=== PATIENT | male | born 1940 | race Caucasian/White ===

== ENCOUNTER 2017-12-28 06:59 | Observation (INO) | payer OTHER ==
[2017-12-28] MEDS ORDERED: NA CHLORIDE 0.9% 1,000 ML ONE (07:31)
[2017-12-28 08:03] LABS: Protime INR 1.08
[2017-12-28 08:04] LABS: Absolute Lymphocytes (CBC) 0.7 K/uL (0.7-4.9); Absolute Monocytes 0.6 K/uL (0.1-1.3); Absolute Neutrophil 8.2 K/uL (1.8-8.0); Basophils % 0.5 % (0-1.3); Eosinophils % 0.8 % (0-4.4); Hematocrit 46.1 % (39.6-49.0); Lymphocytes % 7.7 % (15.3-44.8); MCH 29.7 pg (27.0-35.0); MCV 87.4 fL (80-100); MPV 8.6 fL (7.6-11.3); Monocytes % 6.3 % (3.3-12.3); RBC Red Blood Cell Count 5.27 M/uL (4.33-5.43)
--- NOTE | 2017-12-28 08:10 | RAD REPORT ---
EXAM DESCRIPTION: CT - Head Brain Wo Cont - 12/28/2017 7:46 am CLINICAL HISTORY: DECLINING STATE Drowsiness COMPARISON: MRI BRAIN WITHOUT CONTRAST dated 02/10/2014 TECHNIQUE: All CT scans are performed using dose optimization technique as appropriate and may inclu de automated exposure control or mA/KV adjustment according to patient size. FINDINGS: No intracranial hemorrhage, hydrocephalus or extra-axial fluid collection.Moderate general ized brain atrophy noted.No areas of brain edema or evidence of midline shift. The paranasal sinuses and mastoids are clear. The calvarium is intact. Mild vertebral artery atherosc lerosis. IMPRESSION: No acute intracranial abnormality.
[2017-12-28 08:17] LABS: ALT/SGPT 34 U/L (12-78); AST/SGOT 30 U/L (15-37); Alkaline Phosphatase 81 U/L (45-117); BUN Blood Urea Nitrogen 13 mg/dL (7-18); Bicarbonate 29 mmol/L (21-32); Bilirubin Direct 0.2 mg/dL (0-0.2); Bilirubin Total 0.7 mg/dL (0.2-1.0); Glucose Level 103 mg/dL (74-106); Magnesium 2.6 mg/dL (1.8-2.4); NT PRO-BNP 49 pg/mL (<450); Potassium 4.2 mmol/L (3.5-5.1); Protein, Total 6.9 g/dL (6.4-8.2); Sodium Level 141 mmol/L (136-145); Troponin (Emerg Dept Use Only) < 0.02 ng/mL (0.0-0.045)
--- NOTE | 2017-12-28 08:53 | RAD REPORT ---
EXAM DESCRIPTION: RAD - Chest Single View - 12/28/2017 8:02 am CLINICAL HISTORY: MALAISE Chest pain. COMPARISON: Chest Pa And Lat (2 Views) dated 07/03/2015; CHEST PA AND LAT 2 VIEW dated 02/11/2012 FINDINGS: Portable technique limits examination quality. The lungs are grossly clear. The heart is normal in size. No displaced fractures.Cervical hardware pl ate. IMPRESSION: No acute intrathoracic process suspected.
[2017-12-28 09:05] LABS: Urine Bacteria 20-50 /HPF (NONE SEEN); Urine RBC <5 /HPF (NONE SEEN)
[2017-12-28 09:06] LABS: Urine Culture Reflex Order REFLEXED; Urine Mucus 1+ /HPF (NONE SEEN)
--- NOTE | 2017-12-28 10:05 | ER ---
Nurse's Notes [facility] Name: Fish Montana Sr Age: 77 yrs Sex: Male : 1940 Arrival Date: 12/28/2017 Time: 07:04 Bed 6 Private MD: Branden De Leon V Diagnosis: Adult failure to thrive Presentation: 12/28 07:14 Presenting complaint: states: GENERALIZED WEAKNESS AND REPEATED FALLS. Transition bp of care: patient was not received from another setting of care. Onset of symptoms is unknown. Risk Assessment: Do you want to hurt yourself or someone else? Patient reports no desire to harm self or others. Initial Sepsis Screen: Does the patient meet any 2 criteria? No. Patient's initial sepsis screen is negative. Does the patient have a suspected source of infection? No. Patient's initial sepsis screen is negative. Care prior to arrival: None. 07:14 Method Of Arrival: Wheelchair bp 07:14 Acuity: KAREN 4 bp Triage Assessment: 07:15 General: Appears in no apparent distress. comfortable, well groomed, Behavior is calm, bp cooperative. Pain: Unable to use pain scale. Does not appear to understand pain scale. EENT: No deficits noted. Neuro: Level of Consciousness is awake, alert, confused, Oriented to none. Cardiovascular: No deficits noted. Rhythm is sinus rhythm. Respiratory: Airway is patent Respiratory effort is even, unlabored, Respiratory pattern is regular, symmetrical. GI: No signs and/or symptoms were reported involving the gastrointestinal system. : No signs and/or symptoms were reported regarding the genitourinary system. Derm: No deficits noted. Musculoskeletal: Circulation, motion, and sensation intact. Range of motion: intact in all extremities. Historical: - Allergies: 07:15 No Known Allergies; bp - Home Meds: 07:15 Exelon Oral [Active]; bp - PMHx: 07:15 Dementia; Alzheimers; bp - Immunization history:: Adult Immunizations up to date. - Social history:: Smoking status: Patient/guardian denies using tobacco. - Ebola Screening: : Patient negative for fever greater than or equal to 101.5 degrees Fahrenheit, and additional compatible Ebola Virus Disease symptoms Patient denies exposure to infectious person Patient denies travel to an Ebola-affected area in the 21 days before illness onset No symptoms or risks identified at this time. Screenin:18 Abuse screen: Denies threats or abuse. Denies injuries from another. Nutritional bp screening: No deficits noted. Tuberculosis screening: No symptoms or risk factors identified. Fall Risk Fall in past 12 months (25 points). Secondary diagnosis (15 points) Alzheimer's, dementia, No IV (0 pts). Ambulatory Aid- Crutches/Cane/Walker (15 pts). Gait- Weak (10 pts.). Mental Status- Overestimates/Forgets Limitations (15 pts.). Total Patterson Fall Scale indicates High Risk Score (45 or more points). Fall prevention measures have been instituted. Side Rails Up X 2 Placed Close to Nursing Station Frequent Obs/Assessments Occuring Family Present and informed to notify staff if the need to leave the bedside As available patient and family educated on Fall Prevention Program and Strategies. Assessment: 07:18 General: SEE TRIAGE NOTE. 77YO WM P/W GEN WEAKNESS AND FALLS, H/O ALZ AND DEMENTIA. PT bp MENTATION BASELINE. 07:40 Reassessment: PT TO CT WITH ASTRONOMY DEPARTMENT CHAIR. bp 08:00 Reassessment: PT RETURNED FROM CT. UOP PENDING, NO CHANGE IN NEURO STATUS. bp 09:00 Reassessment: ALL CURRENT ORDERS COMPLETED, RESULTS PENDING. bp 10:00 Reassessment: ALL CURRENT STUDIES RESULTED, UNREMARKABLE. PT TBA, PER FAMILY AND PCP, bp FOR FURTHER STUDIES. Vital Signs: 07:15 BP 151 / 74; Pulse 85; Resp 16; Temp 97.8; Pulse Ox 97% ; Weight 92.53 kg; Height 5 ft. bp 9 in. (175.26 cm); 08:00 BP 165 / 86; Pulse 84; Resp 14; Pulse Ox 97% ; bp 09:00 BP 149 / 70; Pulse 84; Resp 13; Pulse Ox 98% ; bp 10:00 BP 157 / 81; Pulse 86; Resp 19; Pulse Ox 98% ; bp 07:15 Body Mass Index 30.13 (92.53 kg, 175.26 cm) bp ED Course: 07:04 Patient arrived in ED. do 07:04 Branden De Leon MD is Private Physician. do 07:08 Nathan Arrington, RUSTY is Primary Nurse. bp 07:12 Dave Liu MD is Attending Physician. gs 07:15 Triage completed. bp 07:15 Arm band placed on. bp 07:18 Patient has correct armband on for positive identification. Placed in gown. Bed in low bp position. Call light in reach. Side rails up X2. Adult w/ patient. 07:40 Initial lab(s) drawn, by me, sent to lab. Inserted saline lock: 22 gauge in left hj antecubital area, using aseptic technique. Blood collected. 07:44 CT Head Brain wo Cont In Process Unspecified. EDMS 07:50 X-ray completed. Patient tolerated procedure well. Patient moved to radiology via stretcher. Patient moved back from radiology. 07:52 XRAY Chest (1 view) In Process Unspecified. EDMS 10:04 Branden De Leon MD is Hospitalizing Provider. gs 10:36 No provider procedures requiring assistance completed. Patient admitted, IV remains in bp place. Administered Medications: 07:57 Drug: NS 0.9% 1000 ml Route: IV; Rate: 1 bolus; Site: left antecubital; 10:16 Follow up: IV Status: Completed infusion; IV Intake: 1000ml bp Intake: 10:16 IV: 1000ml; Total: 1000ml. bp Outcome: 10:04 Decision to Hospitalize by Provider. gs 10:35 Admitted to Med/surg accompanied by tech, family with patient, via stretcher, room 230, bp with chart, Report called to BELEN OJEDA 10:35 Condition: stable 10:35 Instructed on the need for admit. 10:43 Patient left the ED. Signatures: Dispatcher [employer] EDKaela Marti Anselmo Champagne, RUSTY RN Gabbie Mcmanus Gregory, MD MD Nathan Arrington, RN RN bp
--- NOTE | 2017-12-28 10:05 | EDPHYS ---
Physician Documentation [facility] Name: Fish Montana Sr Age: 77 yrs Sex: Male : 1940 Arrival Date: 12/28/2017 Time: 07:04 Bed 6 Private MD: Branden De Leon V ED Physician Dave Liu HPI: 12/28 09:57 This 77 yrs old Male presents to ER via Wheelchair with complaints of Fall gs Injury. 09:57 Details of fall: The patient fell from an upright position. Onset: The symptoms/episode gs began/occurred 2 day(s) ago. Associated injuries: The patient sustained injury to the head, abrasion. Severity of symptoms: At their worst the symptoms were moderate, in the emergency department the symptoms are unchanged. The patient has experienced similar episodes in the past, several times. The patient has not recently seen a physician. worsening of dementia poor intake. Historical: - Allergies: 07:15 No Known Allergies; bp - Home Meds: 07:15 Exelon Oral [Active]; bp - PMHx: 07:15 Dementia; Alzheimers; bp - Immunization history:: Adult Immunizations up to date. - Social history:: Smoking status: Patient/guardian denies using tobacco. - Ebola Screening: : Patient negative for fever greater than or equal to 101.5 degrees Fahrenheit, and additional compatible Ebola Virus Disease symptoms Patient denies exposure to infectious person Patient denies travel to an Ebola-affected area in the 21 days before illness onset No symptoms or risks identified at this time. ROS: 09:57 Unable to obtain ROS due to baseline dementia. gs Exam: 09:57 Head/Face: Normocephalic, atraumatic. Eyes: Pupils equal round and reactive to light, gs extra-ocular motions intact. Lids and lashes normal. Conjunctiva and sclera are non-icteric and not injected. Cornea within normal limits. Periorbital areas with no swelling, redness, or edema. ENT: Nares patent. No nasal discharge, no septal abnormalities noted. Tympanic membranes are normal and external auditory canals are clear. Oropharynx with no redness, swelling, or masses, exudates, or evidence of obstruction, uvula midline. Mucous membranes moist. Neck: Trachea midline, no thyromegaly or masses palpated, and no cervical lymphadenopathy. Supple, full range of motion without nuchal rigidity, or vertebral point tenderness. No Meningismus. Chest/axilla: Normal chest wall appearance and motion. Nontender with no deformity. No lesions are appreciated. Cardiovascular: Regular rate and rhythm with a normal S1 and S2. No gallops, murmurs, or rubs. Normal PMI, no JVD. No pulse deficits. Respiratory: Lungs have equal breath sounds bilaterally, clear to auscultation and percussion. No rales, rhonchi or wheezes noted. No increased work of breathing, no retractions or nasal flaring. Abdomen/GI: Soft, non-tender, with normal bowel sounds. No distension or tympany. No guarding or rebound. No evidence of tenderness throughout. Back: No spinal tenderness. No costovertebral tenderness. Full range of motion. Skin: Warm, dry with normal turgor. Normal color with no rashes, no lesions, and no evidence of cellulitis. MS/ Extremity: Pulses equal, no cyanosis. Neurovascular intact. Full, normal range of motion. 09:57 Constitutional: The patient appears awake. 09:57 ECG was reviewed by the Attending Physician. 09:57 Neuro: Orientation: Not oriented to person, place, time, situation, Cranial nerves: CN II- XII are normal as tested, Cerebellar function: no acute changes, Motor: moves all fours, Sensation: no obvious gross deficits. Vital Signs: 07:15 BP 151 / 74; Pulse 85; Resp 16; Temp 97.8; Pulse Ox 97% ; Weight 92.53 kg; Height 5 ft. bp 9 in. (175.26 cm); 08:00 BP 165 / 86; Pulse 84; Resp 14; Pulse Ox 97% ; bp 09:00 BP 149 / 70; Pulse 84; Resp 13; Pulse Ox 98% ; bp 10:00 BP 157 / 81; Pulse 86; Resp 19; Pulse Ox 98% ; bp 07:15 Body Mass Index 30.13 (92.53 kg, 175.26 cm) bp MDM: 07:19 Patient medically screened. 09:57 Differential diagnosis: closed head injury, contusion, sepsis, cva, worsening of gs dementia. Data reviewed: vital signs, nurses notes. Counseling: I had a detailed discussion with the patient and/or guardian regarding: the historical points, exam findings, and any diagnostic results supporting the discharge/admit diagnosis. Response to treatment: There is no appreciated change of the patient's symptoms at this time. Physician consultation: Branden De Leon MD. 12/28 07:22 Order name: Basic Metabolic Panel; Complete Time: 08:55 gs 12/28 07:22 Order name: CBC with Diff; Complete Time: 08:55 gs 12/28 07:22 Order name: LFT's; Complete Time: 08:55 gs 12/28 07:22 Order name: Magnesium; Complete Time: 08:55 gs 12/28 07:22 Order name: NT PRO-BNP; Complete Time: 08:55 gs 12/28 07:22 Order name: PT-INR; Complete Time: 08:55 gs 12/28 07:22 Order name: Troponin (emerg Dept Use Only); Complete Time: 08:55 gs 12/28 07:22 Order name: XRAY Chest (1 view); Complete Time: 08:55 gs 12/28 07:22 Order name: CT Head Brain wo Cont; Complete Time: 08:55 gs 12/28 07:22 Order name: Urine Microscopic Only; Complete Time: 09:38 gs 12/28 09:08 Order name: Urine Culture EDMS 12/28 09:19 Order name: Urine Dipstick--Ancillary (enter results) bd 12/28 10:11 Order name: Stroke Protocol EDSC 12/28 07:22 Order name: EKG; Complete Time: 07:23 gs 12/28 07:22 Order name: Cardiac monitoring; Complete Time: 07:45 gs 12/28 07:22 Order name: EKG - Nurse/Tech; Complete Time: 07:58 gs 12/28 07:22 Order name: IV Saline Lock; Complete Time: 07:45 gs 12/28 07:22 Order name: Labs collected and sent; Complete Time: 07:45 gs 12/28 07:22 Order name: O2 Per Protocol; Complete Time: 07:23 gs 12/28 07:22 Order name: O2 Sat Monitoring; Complete Time: 07:23 gs 12/28 07:22 Order name: Urine Dipstick-Ancillary (obtain specimen); Complete Time: 08:55 gs 12/28 10:14 Order name: Regular EDMS EC:57 Rate is 86 beats/min. Rhythm is regular. GA interval is normal. QRS interval is normal. gs No ST changes noted. Clinical impression: Normal ECG. Interpreted by me. Administered Medications: 07:57 Drug: NS 0.9% 1000 ml Route: IV; Rate: 1 bolus; Site: left antecubital; hj 10:16 Follow up: IV Status: Completed infusion; IV Intake: 1000ml bp Disposition: 12/28/17 10:04 Hospitalization ordered by Branden De Leon for Observation. Preliminary diagnosis is Adult failure to thrive. - Bed requested for Telemetry/MedSurg (observation). - Status is Observation. hj - Condition is Stable. - Problem is an acute exacerbation. - Symptoms are unchanged. UTI on Admission? No Signatures: Dispatcher [employer] EDMS Andria Marquez Henry, RN RN Dave Villagomez MD MD gs Peltier, Brian, RN RN bp Corrections: (The following items were deleted from the chart) 10:23 10:04 Hospitalization Ordered by Branden De Leon MD for Observation. Preliminary diagnosis bd is Adult failure to thrive. Bed requested for Telemetry/MedSurg (observation). Status is Observation. Condition is Stable. Problem is an acute exacerbation. Symptoms are unchanged. UTI on Admission? No. gs 10:43 10:23 12/28/2017 10:04 Hospitalization Ordered by Branden De Leon MD for Observation. hj Preliminary diagnosis is Adult failure to thrive. Bed requested for Telemetry/MedSurg (observation). Status is Observation. Condition is Stable. Problem is an acute exacerbation. Symptoms are unchanged. UTI on Admission? No. bd
[2017-12-28] MEDS ORDERED: ACETAMINOPHEN 500 MG TAB PO PRN (10:11)
[2017-12-28 10:23] LABS: Urine Blood NEGATIVE (NEG); Urine Glucose NEGATIVE (NEG); Urine Protein NEGATIVE (NEG)
--- NOTE | 2017-12-28 10:47 | EKG ---
Test Date: 2017-12-28 Test Time: 08:59:24 Director Of Acquisitions: KENDAL MEASUREMENT RESULTS: Intervals: Rate: 86 MI: 168 QRSD: 66 QT: 364 QTc: 435 [place]: P: 63 MI: 168 QRS: -14 T: 68 INTERPRETIVE STATEMENTS: Normal sinus rhythm Low voltage QRS Borderline ECG Compared to ECG 08/10/2008 10:56:47 Low QRS voltage now present Electronically Signed On 12-28-17 10:47:10 CDT by John Guzmán
[2017-12-28] MEDS ORDERED: NA CHLORIDE 0.9% 1,000 ML IV SCH (11:00)
--- NOTE | 2017-12-28 18:04 | P.SSS ---
Patient History Date of Service: 12/28/17 Reason for admission: AGITATION,FALLS. SEVERE DEMENTIA. History of Present Illness: MR. BALDERAS HAS SEVERE ALZ.DISAEASE, TAKEN CARE BY AT HOME. WANTED HIM TO HAVE PT. 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 STILL HOME [facility] WAS CHANGED 3 TIMES FOR PT. NOW HE IS IN HOSPITAL HE HAS FALLEN A FEW TIMES. I ASKED ER DOCTOR TO DC HIM HOMEWITH HOSPICE BUT FAMILY WANTED TO SEE NEURO AND HAVE MRI DONE. I SAW HIM AT LUNCH TIME. I EXPLAINED TO FAMILY THAT DOING MRI IS NOT GOING TO CHANGE OURPLAN FOR THERAPY. IN MY OPINION HE SHOULD BE IN ALZ .UNIT WITH 24 HOUR SUPERVISION. DOES NOT WANT TO DO THAT. WE DECIDED TO CALL IN HOSPICE THEY WILL BE ABLE TO PROVIDE MORE CARE THAN HOME HEALTH CAN AT THIS STAGE. Allergies No Known Allergies Allergy (Unverified 12/28/17 10:22) Home Medications: Memantine HCl [Namenda] 1 tab PO SEECOM 12/28/17 Pravastatin Sodium [Pravachol] 1 tab PO BEDTIME 12/28/17 Quetiapine Fumarate [Seroquel] 1 tab PO BEDTIME 12/28/17 Rivastigmine Tartrate [Rivastigmine] 1 cap PO BID 12/28/17 - Past Medical/Surgical History Has patient received pneumonia vaccine in the past: Yes Diabetic: No -: dementia -: hemrrhoidectomy -: carpal tunnel both hands -: neck sx -: lower back sx - Social History Smoking Status: Never smoker Alcohol use: No CD- Drugs: No Caffeine use: Yes Place of Residence: Home Review of Systems 10-point ROS is otherwise unremarkable Neurological: Confusion, As per HPI Physical Examination - Vital Signs Temperature: 97.8 F Blood Pressure: 168/95 Pulse: 93 Respirations: 20 Pulse Ox (%): 97 - Physical Exam General: Alert, In no apparent distress HEENT: Atraumatic, PERRLA, Mucous membr. moist/pink, EOMI, Sclerae nonicteric Neck: Supple, 2+ carotid pulse no bruit, No LAD, Without JVD or thyroid abnormality Respiratory: Clear to auscultation bilaterally, Normal air movement Cardiovascular: Regular rate/rhythm, Normal S1 S2 Gastrointestinal: Normal bowel sounds, No tenderness Musculoskeletal: No tenderness Integumentary: No rashes Neurological: Dementia (DOES NOT SPEAK MUCH. HE IS AT BASELINE. POWER EQUAL BILAT . NO COGNITIVE ABILTY TO FOLLOW ORDERS.) Lymphatics: No axilla or inguinal lymphadenopathy - Studies Laboratory Data (last 24 hrs) 12/28/17 07:40: PT 12.7 H, INR 1.08 12/28/17 07:40: WBC 9.7, Hgb 15.7, Hct 46.1, Plt Count 197 12/28/17 07:40: Sodium 141, Potassium 4.2, BUN 13, Creatinine 1.00, Glucose 103 , Magnesium 2.6 H, Total Bilirubin 0.7, AST 30, ALT 34, Alkaline Phosphatase 81 - Diagnosis (Problem(s)) (1) Alzheimer disease Status: Acute Plan: WE DECIDED ON HOSPICE NOW JUST AFTER ADMISSION PATIENT IS DISCHARGED BACK HOME WITH HOSPICE. FAMILY IS WISHING DISCHARGE TODAY. Qualifiers: Alzheimer's disease onset: late-onset - Disposition Disposition: HOSPICE-HOME
== END 2017-12-28 15:23 | disposition hospice, home (50) ==
LOC: ER 06:59 → ERHOLD 10:10 → 2ND 10:35
PROVIDERS: ADMIT Internal Medicine; ATTEND Internal Medicine
DX: G30.9 Alzheimer's disease, unspecified (principal); F02.80 Dementia in other diseases classified elsewhere, unspecified severity, without behavioral disturbance, psychotic disturbance, mood disturbance, and anxiety
CPT/HCPCS: 36415; 70450; 71045; 80048; 80076; 83735; 83880; 84484; 85025; 85610; 87077; 87086; 87088; 87186; 93005; 96360; 96361; 99285; G0378 ×2; J7030 ×2; 81003; 81015